=== PATIENT | female | born 1980 | race African-American/Black ===

== ENCOUNTER → 2022-10-15 06:59 | Outpatient (CLI) | payer BC, SELFPAY ==
--- NOTE | ~2022-10-15 | MR_ITS ---
EXAMINATION: MR elbow LT wo con DATE: 10/15/2022 07:36 INDICATION: Left elbow pain. TECHNIQUE: Magnetic resonance imaging (MRI) of the left elbow was performed without intravenous contr ast. Sequences included coronal, axial, and sagittal PD-weighted FS FSE and coronal, axial, and sagit casey PD-weighted FSE. COMPARISON: None FINDINGS: Osseous/other: Bone alignment is normal. No fracture. The cartilage is normal. Tendons: The biceps and brachialis tendons are normal. The common flexor tendon is normal. There is moderate t endinopathy of the common extensor tendon at its attachment at lateral humeral epicondyle. No tear. T here is mild edema of the supinator muscle. Ligaments: Radial collateral ligament and lateral ulnar collateral ligament are intact. Ulnar collateral ligamen t is normal. Cubital tunnel: There is increased signal in the ulnar nerve, consistent with neuropathy. Fluid: There is no elbow joint effusion. IMPRESSION: 1. Moderate tendinopathy of common extensor tendon. No tear. 2. Mild edema of superior muscle, consistent with mild strain (grade 1). 3. Increased signal in the ulnar nerve in the cubital tunnel, consistent with neuropathy. Reviewed, dictated and finalized at location A. [facility] [employer] IMPRESSION: 1. Moderate tendinopathy of common extensor tendon. No tear. 2. Mild edema of superior muscle, consistent with mild strain (grade 1). 3. Increased signal in the ulnar nerve in the cubital tunnel, consistent with n europathy.
== END ==
PROVIDERS: PCP Hospitalist; Visit Provider Orthopaedic Surgery
DX: M25.522 Pain in left elbow (principal); R60.9 Edema, unspecified; R93.6 Abnormal findings on diagnostic imaging of limbs
CPT/HCPCS: 73221